=== PATIENT | male | born 1975 | race African-American/Black ===

== ENCOUNTER 2017-05-10 09:55 | Emergency (ER) | payer SELFPAY ==
[2017-05-10 10:00] VITALS: BP 151/85; PULSE 77; TEMP 99.1; BMI 28.7
--- NOTE | 2017-05-10 10:50 | PDOC ---
History of Present Illness - General Chief Complaint: Cold Symptoms Stated Complaint: COLD SYMPTOMS Time Seen by Provider: 05/10/17 10:33 History Source: Patient Exam Limitations: No Limitations - History of Present Illness Initial Comments: 05/10/17 10:46 41 yr male with c/o cough for 10 days and sneezing. Pt denies fever states he [place] [employer] and has not been wearing his respirator mask. Pt does not smoke no PMHX. Severity: reports: mild Past History - Past Medical History Allergies/Adverse Reactions: Allergies Allergy/AdvReac Type Severity Reaction Status Date / Time No Known Allergies Allergy Verified 05/10/17 09:58 Home Medications: Ambulatory Orders Benzonatate [Tessalon Pearls -] 200 mg PO TID PRN #42 cap 05/10/17 COPD: No - Suicide/Smoking/Psychosocial Hx Smoking History: Never smoked Have you smoked in the past 12 months: No Information on smoking cessation initiated: No Hx Alcohol Use: No Drug/Substance Use Hx: No Substance Use Type: None Respiratory Specific PMHX - Complaint Specific PMHX Angina: No Bronchitis: No Pneumonia: No Pulmonary Embolus: No TB (Tuberculosis): No Review of Systems - Review of Systems Able to Perform ROS?: Yes Is the patient limited Swedish proficient: No Constitutional: No: Symptoms Reported HEENTM: Yes: Symptoms Reported, Other (sneezing) Respiratory: Yes: Cough Cardiac (ROS): No: Symptoms Reported ABD/GI: No: Symptoms Reported : No: Symptoms Reported Musculoskeletal: No: Symptoms Reported Integumentary: No: Symptoms Reported *Physical Exam - Vital Signs Last Vital Signs Temp Pulse Resp BP Pulse Ox 99.1 F 77 18 151/85 100 05/10/17 09:58 05/10/17 09:58 05/10/17 09:58 05/10/17 09:58 05/10/17 09:58 - Physical Exam General Appearance: Yes: Nourished, Appropriately Dressed HEENT: positive: EOMI, DAHLIA, TMs Normal, Pharynx Normal Neck: positive: Supple. negative: Tender, Lymphadenopathy (R), Lymphadenopathy (L) Respiratory/Chest: positive: Lungs Clear, Normal Breath Sounds. negative: Chest Tender, Rhonchi, Stridor, Wheezing Cardiovascular: positive: Regular Rhythm, Regular Rate Musculoskeletal: positive: Normal Inspection Extremity: positive: Normal Capillary Refill, Normal Inspection, Normal Range of Motion Integumentary: positive: Normal Color, Dry, Warm Neurologic: positive: Fully Oriented, Alert, Normal Mood/Affect, Normal Response , Motor Strength 10/02 Medical Decision Making - Medical Decision Making 05/10/17 10:49 cc: cough for 10 days no wheezing no sob no fever no chills pt states he feels it is due to his job not wearing a mask 05/10/17 11:27 cxr done pt is stable no distress no cough in the ER *DC/Admit/Observation/Transfer Diagnosis at time of Disposition: Cough in adult - Discharge Dispostion Disposition: HOME Condition at time of disposition: Good - Prescriptions Prescriptions: Benzonatate [Tessalon Pearls -] 200 mg PO TID PRN #42 cap PRN Reason: Cough - Referrals Referrals: Hood Buckner MD [Staff Physician] - - Patient Instructions Printed Discharge Instructions: DI for Common Cold Additional Instructions: drink pleanty of fluids to stay well hydrated increase vitamin C and Zinc intake use tessalon as directed for cough - Post Discharge Activity
== END 2017-05-10 11:58 | disposition home or self-care (01) ==
LOC: JERFT 09:55
DX: R05 Cough (principal)
CPT/HCPCS: 71020-TC; 99281-25